=== PATIENT | male | born 1960 | race Caucasian/White ===

== ENCOUNTER 2024-03-23 10:30 | Emergency (ER) | payer OTHER, SELFPAY ==
[2024-03-23] VITALS (48 sets, daily range): BP systolic 127–197; BP diastolic 67–93; PULSE 50–70; RESP 9–25; TEMP 37.2
--- NOTE | 2024-03-23 10:30 | RT.EKG_ITS ---
APPROVED REPORT Exam: Resting ECG Reason for Exam: Chest pain Patient Location: E HR:65 bpm ECG Measurements Heart Rate 65 AXIS WV 142 P 45 QRSd 106 QRS 28 QT 402 T 42 QTc 420 Conclusion Sinus rhythm. 65 no stemi
[2024-03-23] MEDS: Aspirin 81 MG CHEW 324 MG CH (11:14)
[2024-03-23 11:22] LABS: Abs Immature Grans 0.01 10^3/uL (0.0-0.06); Absolute Basophil Count 0.03 10^3/uL (0.0-0.2); Absolute Eosinophil Count 0.08 10^3/uL (0.0-0.7); Absolute Lymphocyte Count 1.06 10^3/uL (1.2-3.4); Absolute Monocyte Count 0.18 10^3/uL (0.1-0.8); Absolute Neutrophil Count 1.84 10^3/uL (1.2-6.7); Basophils % 0.9 %; Eosinophils % 2.5 %; HCT 43.9 % (40.0-50.0); HGB 15.1 g/dL (13.5-17.5); Immature Grans % 0.3 %; Lymphocytes % 33.1 %; MCH 31.8 pg (27.0-33.0); MCHC 34.4 % (32.0-36.0); MCV 92 fL (80-95); MPV 9.3 fL (8.0-11.0); Monocytes % 5.6 %; Neutrophils % 57.6 %; Platelet Count 173 10^3/uL (130-400); RBC 4.75 10^6/uL (4.36-5.78); RDW 12.2 % (11.8-14.1)
--- NOTE | 2024-03-23 11:25 | ED.GENADUL_ITS ---
Discharge Plan Disposition Patient Disposition: Home Condition: Stable Discharge Details Clinical Impression: Fatigue, Dyspnea, Chest pain Primary Care Provider: [facility] ED Provider: Urban Elam Home Meds and New Rx's Prescriptions: No Action dofetilide 250 mcg capsule 250 mcg PO ONCE lisinopril 5 mg tablet 5 mg PO ONCE iron, carbonyl [Ferretts Carbonyl Iron] 1 tab PO DAILY Discharge Instructions Instructions: Chest Pain (ED) Additional Instructions: Please follow-up with your primary care provider for further evaluation of your symptoms. Take your blood pressure daily and keep a log, present this log to your PCP for evaluation and review for adjustment in your medications. You will need an outpatient stress test, this can be arranged by your PCP. Return to the emergency department with severe chest pain or shortness of breath HPI General Date/Time Provider Initiated Documentation: 03/23/24 10:40 . Limitations to Documentation: no limitations . Information obtained by: patient . HPI Narrative: 63-year-old gentleman with past medical history of atrial tachycardia, hyperten matt presents for evaluation of shortness of breath and fatigue. He reports over the last few weeks he has been noticing some shortness of breath that occurs with exertion. He states he still able to do his regular exercise activities, but other things are causing him to have shortness of breath that do not normally. He reports that he used an inhaler 2 weeks ago which did seem to improve his symptoms. He reports compliance with his medications. He reports that he woke up overnight feeling very lightheaded having some indigestion and heartburn. He reports that he is now just having some discomfort in his chest. Denies pressure pain, denies any radiation. Reports that he generally just feels fatigued. Related Data Home Medications Medication Instructions Recorded Confirmed dofetilide 250 mcg capsule 250 mcg PO ONCE 03/23/24 03/23/24 iron, carbonyl 1 tab PO DAILY 03/23/24 03/23/24 lisinopril 5 mg tablet 5 mg PO ONCE 03/23/24 03/23/24 Allergies Allergy/AdvReac Type Severity Reaction Status Date / Time No Known Allergies Allergy Verified 03/23/24 10:59 General Stated Complaint: Chest Pain ANGEL: 3 Exam Narrative Exam Narrative: Review of Systems: All systems reviewed & are unremarkable except as noted in HPI and below Well-developed, no acute distress NCAT PERRL, normal conjunctiva RRR, no murmur Unlabored respiratory effort, clear bilaterally Nondistended abdomen, nontender Extremities w/o deformity, no cyanosis, no edema No rashes or lesions. no focal neurologic deficits Appropriate mood and affect Course Vital Signs Vital signs: Vital Signs Temperature 37.2 C 03/23/24 10:33 Pulse 70 03/23/24 10:33 Respiratory Rate 16 03/23/24 10:33 Blood Pressure 197/93 H 03/23/24 10:33 Temperature 37.2 C 03/23/24 10:33 Temperature Source Tympanic 03/23/24 10:33 Pulse 60 03/23/24 11:16 Pulse 59 L 03/23/24 11:16 Respiratory Rate 13 03/23/24 11:16 Respiratory Effort Normal, Non-Labored 03/23/24 11:14 Respiratory Depth Normal 03/23/24 11:14 Respiratory Pattern Normal 03/23/24 11:14 Blood Pressure 168/76 H 03/23/24 11:16 Blood Pressure Mean 108 03/23/24 11:16 Blood Pressure Position Sitting 03/23/24 10:33 Oxygen Delivery Method Room Air 03/23/24 10:33 Oxygen Flow Rate 0 03/23/24 10:33 Pain Level 1 03/23/24 11:14 Lab/Test Results Lab/Test Results: Laboratory Tests Range/Units 03/23/24 11:10 WBC (4.4-10.8) 10^3/uL 3.20 L RBC (4.36-5.78) 10^6/uL 4.75 Hgb (13.5-17.5) g/dL 15.1 Hct (40.0-50.0) % 43.9 MCV (80-95) fL 92 MCH (27.0-33.0) pg 31.8 MCHC (32.0-36.0) % 34.4 RDW (11.8-14.1) % 12.2 Plt Count (130-400) 10^3/uL 173 MPV (8.0-11.0) fL 9.3 Immature Gran % % 0.3 Neutrophils % % 57.6 Lymphocytes % % 33.1 Monocytes % % 5.6 Eosinophils % % 2.5 Basophils % % 0.9 Nucleated RBC % (0.0-0.3) % 0.0 Absolute Neutrophils (1.2-6.7) 10^3/uL 1.84 Absolute Lymphocytes (1.2-3.4) 10^3/uL 1.06 L Absolute Monocytes (0.1-0.8) 10^3/uL 0.18 Absolute Eosinophils (0.0-0.7) 10^3/uL 0.08 Absolute Basophils (0.0-0.2) 10^3/uL 0.03 Medical Decision Making Emergent evaluation of shortness of breath, chest discomfort. Patient does have a history of atrial tachycardia however his EKG today is unremarkable for any dysrhythmia. He is rate controlled. Blood pressure slightly elevated. His description of chest discomfort is not entirely given concerning, but initial differential does include ACS, dysrhythmia, electrolyte derangement, viral illness. Plan for lab work, serial troponins chest x-ray. Lab work reviewed. He has mild leukopenia of 3.2. Otherwise CBC is unremarkable. His electrolytes are without significant derangement. D-dimer was included because the patient reported to the nurse that he had been having some calf pain and discoloration and was concern for possible blood clot although the calf has a normal examination today. The D-dimer was negative and I have a low suspicion for a DVT or pulmonary embolism causing his symptoms today. Serial troponins obtained, there is no change. Serial EKGs does also not reveal any dynamic change. Patient did get some nitroglycerin and it is unclear how this changed his symptoms. I do not feel strongly that the patient's symptoms are secondary to ACS and his risk factors only include his age. I do recommend that the patient follow-up with his PCP for cardiac stress testing. His blood pressure was noted to be slightly higher than it usually is for him, and I have recommended a blood pressure log and follow-up with his PCP for evaluation of this and change medications as necessary. Medical Records Medical records reviewed: Yes I reviewed the patient's medical records. Lab Data Lab results reviewed: Yes I reviewed the patient's lab results. Quality:[facility] Related Social Needs: No Data to Display PFSH All Active Problems (Updated 03/23/24 @ 14:47 by Urban Elam MD) Chest pain (Acute) Dyspnea (Acute) Fatigue (Acute) Social History Smoking/Tobacco Use Status: Never Smoking risk assessment performed?: Yes Alcohol Intake: current Alcohol Intake frequency: a few times a week Alcohol type: beer Drug use: Never Substance use type: does not use Housing: house Do you feel safe at home: Yes Do you feel safe in your relationship?: Yes
--- NOTE | 2024-03-23 11:34 | DI.RAD_ITS ---
Exam(s) XR CHEST 2V PA LATERAL EXAM: XR CHEST 2V PA LATERAL CLINICAL HISTORY: chest pain TECHNIQUE: 2D digital imaging was performed. Two views. COMPARISON: No exams were available for comparison FINDINGS: HEART: Normal size. Aorta: Not dilated. PULMONARY VASCULATURE: Normal. LUNGS: Clear. PLEURAL SPACE: No pleural effusion or pneumothorax. BONE:Unremarkable for age. Soft tissues: Unremarkable. IMPRESSION: No acute abnormality. DATA REPOSITORY: RADIATION DOSE DELIVERED:
[2024-03-23] MEDS: nitroGLYcerin 0.4 MG TAB SL ×3 (11:41→12:02)
[2024-03-23 11:48] LABS: ALT 35 U/L (16-63); AST 16 U/L (15-37); Albumin 4.1 g/dL (3.4-5.0); Alkaline Phosphatase 72 U/L (46-116); Anion Gap 8.6 mmol/L (3-11); BUN 14 mg/dL (7-18); Bilirubin, Total 0.4 mg/dL (0.2-1.0); CO2 29.4 mmol/L (21.0-32.0); Calcium 8.8 mg/dL (8.5-10.1); Chloride 100 mmol/L (98-107); Estimated GFR 84.57 (mL/min/1.73m2); Glucose 172 mg/dL (74-106); Magnesium 1.9 mg/dL (1.8-2.4); NT-proBNP 48 pg/mL (<300); Potassium 3.9 mmol/L (3.5-5.1); Sodium 138 mmol/L (136-145); Total Protein 6.9 g/dL (6.4-8.2); Troponin I < 50 ng/L (< or =60)
--- NOTE | 2024-03-23 12:30 | RT.EKG_ITS ---
APPROVED REPORT Exam: Resting ECG Reason for Exam: Repeat EKG s/p nitroglycerine administration Patient Location: E HR:51 bpm ECG Measurements Heart Rate 51 AXIS VA 155 P 46 QRSd 103 QRS 20 QT 438 T 36 QTc 404 Conclusion Sinus bradycardia 51 no stemi
[2024-03-23 14:14] LABS: Troponin I < 50 ng/L (< or =60)
[2024-03-23 14:22] LABS: D-Dimer 147 ng/mlFEU (<500)
== END 2024-03-23 15:08 | disposition home or self-care (01) ==
PROVIDERS: Emergency Provider Emergency Medicine
DX: R42 Dizziness and giddiness (principal); R07.9 Chest pain, unspecified; R53.83 Other fatigue; I47.19 Other supraventricular tachycardia; I10 Essential (primary) hypertension
CPT/HCPCS: 36415; 80053; 93005; 99285; 71046; 83735; 83880; 84484; 85025; 85379; 93010; 99284

== ENCOUNTER 2024-06-07 01:56 | Outpatient (CLI) | payer OTHER, SELFPAY ==
--- NOTE | 2024-06-07 | ETT_ITS ---
APPROVED REPORT Exam: Exercise Treadmill Patient Location: Out-Patient Room/Bed: Stress Nurse: Pearl Camilo RN Ordering Provider:DARA WILLAMS, Contact Number: BMI: 27.25 Baseline Rhythm: Sinus Bradycardia Indications: Chest pain Medical History Medical History: Atrial tachycardia, HTN, SOB, fatigue, depression, afib (8 years ago) Cardiac Medications: Dofetilide, ferrous sulfate, lisinopril Allergies: NKDA Cardiac Risk Factors: Family hx, HTN Previous Cardiac Procedures: Ablation with no intervention (8 years ago) Pretest Chest Pain Characteristics: None Exercise History: Physically active Physical Disabilities: None Lung Sounds: Clear to auscultation Heart Sounds: Regular Stress Test Details Test: Exercise stress testing was performed using a John protocol. Rest Stress HR Resting HR Supine: 59 bpm Max Heart Rate (APMHR): 157 bpm Resting HR Standin bpm Target HR (85% APMHR): 133 bpm Max HR Achieved: 148 bpm % of APMHR: 94 Recovery HR: 68 bpm HR response to stress: Normal HR response to stress BP Resting BP Supine: 130/72 mmHg Resting BP Standin/69 mmHg Max BP: 196/80 mmHg Recovery BP: 142/78 mmHg BP response to stress: Normal blood pressure response to stress. ECG Resting ECG: Sinus Bradycardia Ectopy: None Stress ECG: Sinus Tachycardia ST Change: No significant ST segment changes noted Arrhythmia: Occasional PVC's Recovery ECG: Sinus Rhythm Recovery ST Change: No significant ST segment changes noted Recovery Arrhythmia: None Clinical Reason for Termination: Target HR Achieved Exercise duration: 09 min43 sec Highest Stage Reached: Stage 4: 4.2 mph at 16% grade. Exercise capacity: 11.32 METs Angina Score: None Silva Treadmill Score: 8.8 Rate Pressure Product: [id number] Stress ECG Conclusion 1. Resting electrocardiogram was normal 2. Patient exercised on the John protocol and completed a workload of 11.32 METS 3. Normal heart rate and blood pressure response to exercise. The patient achieved 94% of predicted heart rate for age 4. There was no electrocardiographic evidence of myocardial ischemia 5. There were no dysrhythmia Silva Treadmill Score is 8.8 which is Low risk. Stress Test Summary STAGE Time (mins) Speed (mph) Grade (%) HR BP SpO2 SYMPTOMS METS Supine 86 152/68 95% Standing 111 168/72 97% 1 3 1.7 10 133 4.5 2 6 2.5 12 146 Mild-Mod SOB 7 1 min recovery 117 196/80 3 min recovery 76 196/76 98% 6 min recovery 68 142/78 97% All symptoms resolved
== END 2024-06-07 02:16 ==
LOC: DI 01:57
PROVIDERS: Visit Provider Family Medicine
DX: R07.9 Chest pain, unspecified (principal)
CPT/HCPCS: 93017